=== PATIENT | female | born 1995 | race Two or more races ===

== ENCOUNTER 2020-05-31 05:53 | Inpatient (IN) | payer MEDICAID, OTHER ==
[~2020-05-31] VITALS: Ht 154.9 cm; Wt 61.3 kg
[2020-05-31 06:21] LABS: BASOPHILS % (AUTO) 0.6 % (0.0-2.0); EOSINOPHILS % (AUTO) 1.2 % (1.0-6.0); HEMATOCRIT 40.7 % (36-46); HEMOGLOBIN 13.9 g/dL (12.0-16.0); LYMPHOCYTES # (AUTO) 2.6 K/uL (1.0-4.8); LYMPHOCYTES % (AUTO) 47.4 % (22.0-44.0); MEAN CORPUSCULAR HEMOGLOBIN 30.7 pg (26.0-34.0); MEAN CORPUSCULAR HGB CONC 34.1 G/dL (31.0-37.0); MEAN CORPUSCULAR VOLUME 90 fL (80-100); MONOCYTES # (AUTO) 0.5 K/uL (0.1-1.0); MONOCYTES % (AUTO) 8.7 % (2.0-9.0); NEUTROPHILS # (AUTO) 2.3 K/uL (1.8-7.7); NEUTROPHILS % (AUTO) 42.1 % (40.0-70.0); PLATELET COUNT (AUTO) 272 K/uL (150-450); RED BLOOD CELL COUNT(AUTO) 4.52 MIL/uL (4.00-5.20); RED CELL DISTRIBUTION WIDTH 12.6 % (11.5-14.5)
[2020-05-31 06:32] LABS: ANION GAP 8 mmol/L (8-16); CALCIUM, TOTAL 9.6 mg/dL (8.8-10.5); CARBON DIOXIDE 28 mmol/L (22-29); CHLORIDE 101 mmol/L (98-107); CREATININE 0.84 mg/dL (0.60-1.30); GLOMERULAR FILTR. RATE CALC > 60 mL/min (>60); GLUCOSE,RANDOM 171 mg/dL (70-110); POTASSIUM 3.8 mmol/L (3.5-5.1); SODIUM SERUM 137 mmol/L (136-145); UREA NITROGEN, BLOOD 7 mg/dL (7-18)
[2020-05-31 06:35] LABS: AMPHET/METH SCREEN,URINE NEGATIVE (NEGATIVE); BARBITURATE SCREEN, URINE NEGATIVE (NEGATIVE); BENZODIAZEPINES SCREEN,URINE NEGATIVE (NEGATIVE); CANNABINOID SCREEN,URINE NEGATIVE (NEGATIVE); COCAINE SCREEN,URINE NEGATIVE (NEGATIVE); METHADONE SCREEN, URINE NEGATIVE (NEGATIVE); OPIATE SCREEN,URINE POSITIVE (NEGATIVE)
[2020-05-31 06:35] LABS: GLUCOSE,POINT OF CARE 182 MG/DL (70-110)
[2020-05-31 06:36] LABS: PHENCYCLIDINE SCREEN,URINE NEGATIVE (NEGATIVE)
[2020-05-31 06:44] LABS: ACETAMINOPHEN 5 mcg/mL (10-30); ALANINE AMINOTRANSFERASE 15 U/L (12-78); ALBUMIN 3.9 g/dL (3.4-5.0); ALKALINE PHOSPHATASE 61 U/L (46-116); ASPARTATE AMINOTRANSFERASE 11 U/L (15-37); BILIRUBIN,TOTAL 0.7 mg/dL (0.1-1.0); HCG,QUANTITATIVE < 1 mIU/mL (0-6); TOTAL PROTEIN, SERUM 7.6 g/dL (6.4-8.2)
[2020-05-31 07:07] LABS: SALICYLATE < 2.8 mg/dL (2.8-20.0)
[2020-05-31] MEDS ORDERED: LORazepam 2 MG TABLET PO PRN (11:15)
[2020-05-31] MEDS ORDERED: ZOLPIDEM TARTRATE 10 MG TABLET PO PRN (11:15)
[2020-05-31] MEDS ORDERED: HALOPERIDOL 5 MG TABLET PO PRN (11:15)
[2020-05-31 12:15] VITALS: BP 106/63
[2020-05-31] MEDS ORDERED: PNEUMOCOCCAL VACCINE POLYVALENT 0.5 ML VIAL [PPSV23] IM ONE (13:15)
[2020-05-31 18:00] VITALS: BP 96/60
[2020-06-01 06:15] VITALS: BP 98/60
[2020-06-01] MEDS: MetFORMIN HCL 500 MG TABLET PO SCH (07:08)
[2020-06-01] MEDS ORDERED: PETROLATUM,WHITE 28 GM JELLY TP PRN (07:15)
[2020-06-01] MEDS ORDERED: ALBUTEROL SULFATE HFA 90 MCG/PUFF 8 GM INHALER IH PRN (07:15)
[2020-06-01] MEDS ORDERED: MAG HYDROX/AL HYDROX/SIMETH ES 30 ML SUSPENSION UDCUP PO PRN (07:15)
[2020-06-01] MEDS ORDERED: ONDANSETRON HCL 4 MG TABLET PO PRN (07:15)
[2020-06-01] MEDS ORDERED: CloNIDine HCL 0.1 MG TABLET PO PRN (07:15)
[2020-06-01] MEDS ORDERED: NICOTINE 14 MG/24 HOUR PATCH TD PRN (07:15)
[2020-06-01] MEDS ORDERED: IBUPROFEN 400 MG TABLET PO PRN (07:15)
[2020-06-01] MEDS ORDERED: ACETAMINOPHEN 325 MG TABLET PO PRN (07:15)
[2020-06-01] MEDS ORDERED: DOCUSATE SODIUM 100 MG CAPSULE PO PRN (07:15)
[2020-06-01] MEDS ORDERED: GuaiFENesin/D-METHORPHAN [SUGAR-FREE] 200-20MG/10 ML SYRUP UDCUP PO PRN (07:15)
[2020-06-01] MEDS ORDERED: MAGNESIUM HYDROXIDE SUSPENSION 30 ML UDCUP PO PRN (07:15)
[2020-06-01] MEDS ORDERED: LOPERAMIDE HCL 2 MG CAPSULE PO PRN (07:15)
[2020-06-01 09:23] VITALS: BP 113/53
[2020-06-01] MEDS: ESCITALOPRAM OXALATE 10 MG TABLET PO SCH (11:36)
[2020-06-01 16:38] VITALS: BP 110/76
[2020-06-02 06:24] LABS: GLUCOMETER DEV NAME(LOC) 3E.I 2; GLUCOSE,POINT OF CARE 117 MG/DL (70-110)
[2020-06-02] MEDS: MetFORMIN HCL 500 MG TABLET PO SCH (06:37)
[2020-06-02 06:41] VITALS: BP 105/68
[2020-06-02] MEDS: ESCITALOPRAM OXALATE 10 MG TABLET PO SCH (09:11)
[2020-06-02 09:32] VITALS: BP 90/51
[2020-06-02 16:00] VITALS: BP 127/77
[2020-06-03] VITALS: BP 121/73
[2020-06-03 06:05] LABS: GLUCOMETER DEV NAME(LOC) 3E.I 2; GLUCOSE,POINT OF CARE 120 MG/DL (70-110)
[2020-06-03] MEDS: MetFORMIN HCL 500 MG TABLET PO SCH (06:45)
[2020-06-03 08:58] VITALS: BP 118/72
[2020-06-03] MEDS: ESCITALOPRAM OXALATE 10 MG TABLET PO SCH (09:15)
[2020-06-03] MEDS ORDERED: ESCI-8 PO (13:07)
[2020-06-03] MEDS ORDERED: METF-960 PO (13:08)
== END 2020-06-03 15:35 | disposition home or self-care (01) | DRG 885 ==
LOC: EMS 05:53 → 3EI 11:04
DX: F33.2 Major depressive disorder, recurrent severe without psychotic features (principal); T39.1X2A Poisoning by 4-Aminophenol derivatives, intentional self-harm, initial encounter; R45.851 Suicidal ideations; S61.512A Laceration without foreign body of left wrist, initial encounter; E11.9 Type 2 diabetes mellitus without complications; F10.10 Alcohol abuse, uncomplicated; F12.10 Cannabis abuse, uncomplicated; K59.00 Constipation, unspecified; I95.9 Hypotension, unspecified; Y92.89 Other specified places as the place of occurrence of the external cause; Z71.51 Drug abuse counseling and surveillance of drug abuser
CPT/HCPCS: 83605; 87081; 93005; 99291; G0480; G0481